=== PATIENT | male | born 1990 | race Caucasian/White ===

== ENCOUNTER 2022-07-03 13:43 | Emergency (ER) | payer OTHER, SELFPAY ==
[2022-07-03 14:02] VITALS: BP 153/84; PULSE 89; RESP 16; TEMP 36.7; O2SAT 100
--- NOTE | 2022-07-03 14:09 | ED.WOUNDLAC ---
HPI - Wound/Laceration General Chief Complaint: Wound/Laceration Stated Complaint: Cut Lt Hand Time Seen by Provider: 07/03/22 14:04 Source: patient Mode of arrival: ambulatory Limitations: no limitations History of Present Illness HPI narrative: Patient presents today complaint of a laceration to the dorsum of his left hand. He was jumping at home and hit his hand on a light fixture home just prior to arrival. Denies numbness or tingling. Denies any pain. He is currently up-to-date in his tetanus vaccine. Related Data Home Medications Medication Instructions Recorded Confirmed No Home Medications 07/03/22 07/03/22 Allergies Allergy/AdvReac Type Severity Reaction Status Date / Time No Known Allergies Allergy Verified 07/03/22 13:50 Review of Systems Review of Systems: CONSTITUTIONAL: Denies body aches, fever, chills, or sweats. EYES: Denies visual changes, redness, or discharge. ENT: Denies rhinorrhea, congestion, sore throat, or otalgia. CARDIOVASCULAR: Denies chest pain, palpitations, or edema. RESPIRATORY: Denies cough or dyspnea. GASTROINTESTINAL: Denies abdominal pain, nausea, vomiting, or diarrhea. GENITOURINARY: Denies dysuria or hematuria. SKIN: Denies rash, itching. + left hand laceration MUSCULOSKELETAL: Denies back pain, joint pain, or myalgia. NEUROLOGIC: Denies headache, numbness, tingling, or weakness. PSYCH: Denies depression or anxiety. PMFSH Comments At time of signature, I have reviewed and agree with nursing past medical, surgical, social and family history unless otherwise noted. Please see nursing chart for further information. There is no relevant family history pertinent to the presenting complaint Exam Narrative: GENERAL: Well-appearing, well-nourished, and in no acute distress. HEAD: Normocephalic, atraumatic. EYES: EOMI. No redness or drainage. Conjunctivae normal. ENT: Mucous membranes pink and moist. NECK: Normal AROM. CHEST: No respiratory distress. EXTREMITIES: Normal range of motion. No edema. SKIN: Warm, dry, no rash. Capillary refill normal. Normal skin turgor. 3cm partial-thickness linear laceration to the dorsum of the hand at the distal 4th and 5th metacarpals. Distal sensation intact capillary refill normal. Full range of motion of the fingers against resistance. NEURO: No focal deficits. Alert and oriented x3. Gait steady. PSYCH: Normal affect. No signs of depression or anxiety. Course Course Level of Care: Express Care Visit Vital Signs Vital signs: Vital Signs Temperature 98.1 F 07/03/22 14:02 Pulse Rate 89 07/03/22 14:02 Respiratory Rate 16 07/03/22 14:02 Blood Pressure 153/84 H 07/03/22 14:02 Pulse Oximetry 100 07/03/22 14:02 Oxygen Delivery Room Air 07/03/22 14:02 Temperature 98.1 F 07/03/22 14:02 Pulse Rate 89 07/03/22 14:02 Respiratory Rate 16 07/03/22 14:02 Blood Pressure 153/84 H 07/03/22 14:02 Pulse Oximetry 100 07/03/22 14:02 Oxygen Delivery Room Air 07/03/22 14:02 Reviewed. Pt has been instructed to follow up with his PCP regarding his elevated blood pressure today. Procedures Laceration Laceration 1: Date: 07/03/22 Time: 14:30 Site: hand Side (If applicable): left Size (cm): 3 Description: linear Depth: simple, single layer Local Anesthetic: lidocaine 1% Amount of anesthesia used (mL): 2 Pre-repair: wound explored and irrigated ====== Skin Level ====== Skin layer closed with: nylon Size (cm): 5-0 Number of sutures: 7 Technique: simple, interrupted ====== Subcutaneous Layer ====== ====== Muscle Layer ====== ====== Tendon Layer ====== Dressing: Dressed with nonadherent dressing. Patient tolerated procedure well MDM - Wound/Laceration Differential Diagnosis Differential diagnosis: Likely laceration, abrasion and avulsion of skin Critical Care Time Critical
[2022-07-03] MEDS: LIDOCAINE HCL 1% LOCAL INJ 2 ML AMPUL 4 ML INFILTRATE (14:38)
== END 2022-07-03 14:45 | disposition home or self-care (01) ==
PROVIDERS: Emergency Provider Nurse Practitioner
DX: S61.412A Laceration without foreign body of left hand, initial encounter (principal); W22.8XXA Striking against or struck by other objects, initial encounter
CPT/HCPCS: 12002; 99212; G0463

== ENCOUNTER 2022-10-15 11:53 | Emergency (ER) | payer BC, SELFPAY ==
--- NOTE | ~2022-10-15 | XR_ITS ---
EXAMINATION: XR chest 2V 10/15/2022 13:16 INDICATION: Right upper quadrant pain PROCEDURE: 2 view chest COMPARISON: 03/22/2010 FINDINGS: The lungs are clear. The cardiomediastinal silhouette is within normal limits. There are no pleural effusions. There is no pneumothorax suspected. IMPRESSION: 1: NO ACUTE CARDIOPULMONARY DISEASE. Reviewed, dictated and finalized at location A.
--- NOTE | ~2022-10-15 | CT_ITS ---
EXAMINATION: CT abdomen pelvis w con DATE: 10/15/2022 13:16 INDICATION: Right upper quadrant pain TECHNIQUE: Computed tomography (CT) of the abdomen and pelvis was performed with 100 cc Omnipaque 350 intravenous contrast. The dose-length product was 652.28 mGy-cm. Automated exposure control and iter ative reconstruction technique were employed. COMPARISON: CT dated 03/22/2020 FINDINGS: Lung bases are unremarkable. Heart size normal. No significant pleural or pericardial effus ion. No significant vascular abnormality. Small fat-containing umbilical hernia. No significant lymph adenopathy. Small hiatal hernia. The liver, spleen, pancreas, adrenal glands and kidneys are unremarkable. Gallbladder is present. Non obstructive bowel gas pattern. Normal appendix. No free air or free fluid.0 there is grade 1 spondylo listhesis at L5-S1 secondary to bilateral spondylolysis. IMPRESSION: 1. No acute abdominal abnormality. Reviewed, dictated and finalized at location A.
[2022-10-15 11:55] VITALS: BP 148/79; PULSE 89; RESP 14; TEMP 36.9; O2SAT 99
[2022-10-15 12:30] LABS: Basophils Percent Auto 0.4 % (0.2-1.2); Eosinophils Absolute Auto 0.1 K/mm3 (0-0.3); Eosinophils Percent Auto 1.4 % (0-4.4); Hematocrit 45.1 % (42.0-52.0); Hemoglobin 15.7 g/dL (14.0-18.0); Immature Granulocyte Absolute 0.01 K/mm3 (0.00-0.031); Immature Granulocyte Percent A 0.2 % (0-0.5); Lymphocytes Absolute Auto 2.06 K/mm3 (0.9-3.2); Lymphocytes Percent Auto 36.2 % (18.3-44.2); Mean Corpuscular HGB Conc 34.8 g/dl (32-36); Mean Corpuscular Hemoglobin 31.3 pg (26-34); Mean Corpuscular Volume 89.8 fl (80-100); Mean Platelet Volume 9.6 fl (7.4-10.4); Monocytes Absolute Auto 0.5 K/mm3 (0.1-0.6); Monocytes Percent Auto 7.9 % (2.6-8.5); Neutrophils Absolute Auto 3.1 K/mm3 (1.3-6.7); Neutrophils Percent Auto 53.9 % (45.5-73.1); Platelet Count Result 354 k/mm3 (150-375); Red Blood Count 5.02 M/mm3 (4.6-6.20); Red Cell Distribution Width 12.7 % (11.5-14.5); White Blood Count 5.7 K/mm3 (4.5-10.0)
[2022-10-15 12:31] LABS: Appearance Urine Clear (Clear); Bilirubin Urine Negative (Negative); Blood Urine Negative (Negative); Color Urine Yellow (Yellow); Glucose Urine UA Negative (Negative); Ketones Urine Negative (Negative); Leukocyte Esterase Ur Negative LEU/UL (Negative); Nitrate Urine Negative (Negative); Protein Urine Negative (Negative); Specific Grav Ur 1.021 (1.001-1.035); Urobilinogen Urine 0.2 mg/dL (<2.0)
[2022-10-15 12:32] LABS: Add Urine Microscopic? NO
[2022-10-15 12:43] LABS: Alanine Aminotransferase 35 U/L (6-50); Alkaline Phosphatase 70 U/L (38-126); Anion Gap 10 mmol/L (8-16); Aspartate Amino Transferase 18 U/L (17-59); Blood Urea Nitrogen 14 mg/dL (9-20); Calcium 9.4 mg/dL (8.4-10.2); Carbon Dioxide 27 mmol/L (22-30); Chloride 105 mmol/L (98-107); Estimated CRCL calculation 127 ml/min; Estimated Glomerular Filt Rate > 60; Glucose 91 mg/dL (65-110); Lipase 63 U/L (23-300); Potassium 4.2 mmol/L (3.4-5.0); Sodium 142 mmol/L (137-145)
--- NOTE | 2022-10-15 12:54 | ED.ABDPAIN ---
HPI - Abdominal Pain General Chief Complaint: Abdominal Pain Stated Complaint: ab pain Time Seen by Provider: 10/15/22 12:11 History of Present Illness HPI narrative: 32 y/o M w/o known medical history reports for constant RUQ abdominal discomfort x1 week. Patient states that he would not call this pain , but states it feels uncomfortable. He does not recognize any patterns with eating or drinking. States the abdominal discomfort has been constant and radiates into his right lower back. Denies history of previous abdominal surgeries, fever, body aches, chills, chest pain, shortness of breath, nausea, vomiting, diarrhea, urinary symptoms. Last bowel movement this morning was normal. Denies melena, hematochezia, heartburn symptoms. Related Data Home Medications Medication Instructions Recorded Confirmed No Home Medications 07/03/22 07/03/22 Allergies Allergy/AdvReac Type Severity Reaction Status Date / Time No Known Allergies Allergy Verified 10/15/22 12:03 Review of Systems Review of Systems: CONSTITUTIONAL: Denies fever, chills EYES: Denies visual changes, redness, or discharge. ENT: Denies rhinorrhea, congestion, sore throat, or otalgia. CARDIOVASCULAR: Denies chest pain, palpitations, or edema. RESPIRATORY: Denies cough or dyspnea. GASTROINTESTINAL: See HPI GENITOURINARY: Denies dysuria or hematuria. SKIN: Denies rash or itching. MUSCULOSKELETAL: Denies joint pain, or myalgia. NEUROLOGIC: Denies headache, numbness, dizziness, or weakness. PSYCHIATRIC: Denies anxiety or depression. Exam Narrative: GENERAL: Well-appearing, well-nourished, and in no acute distress. Pt resting comfortably in bed. He is pleasant and conversational. HEAD: Normocephalic, atraumatic. EYES: PERRLA and EOMI. ENT: Nares clear, no rhinorrhea or epistaxis. Mucous membranes moist. Oropharynx without tonsillar hypertrophy exudate or other lesions. NECK: Supple. No adenopathy or masses. CHEST: Clear to auscultation. No respiratory distress. No wheezes rales or rhonchi. HEART: Regular rate and rhythm. No murmur heard. Normal peripheral pulses. ABDOMEN: Soft, nondistended, normal active bowel sounds. Tenderness to the RUQ with deep palpation. Negative Monzon's. No tenderness to remaining of abdomen. Negative CVA tenderness. BACK: No midline vertebral spine tenderness. TTP to R paraspinous muscles. No overlying skin changes. EXTREMITIES: Normal range of motion. No edema. SKIN: Warm, dry, no rash. NEURO: No focal deficits. Alert and oriented x3. PSYCH: Normal mood and affect. Course Course Emergency Course: 1419: Patient reevaluated. He is sitting in the chair in the exam room, conversing with family member. He does not appear to be in any distress. He is pleasant and conversational. Vital Signs Vital signs: Vital Signs Temperature 98.4 F 10/15/22 11:55 Pulse Rate 89 10/15/22 11:55 Respiratory Rate 14 10/15/22 11:55 Blood Pressure 148/79 H 10/15/22 11:55 Pulse Oximetry 99 10/15/22 11:55 Oxygen Delivery Room Air 10/15/22 11:55 Temperature 98.4 F 10/15/22 11:55 Pulse Rate 76 10/15/22 14:29 Respiratory Rate 16 10/15/22 14:29 Blood Pressure 133/82 10/15/22 14:29 Pulse Oximetry 100 10/15/22 14:29 Oxygen Delivery Room Air 10/15/22 11:55 MDM - Abdominal Pain MDM Narrative Medical decision making narrative: 32 y/o M w/o known medical history reports for RUQ persistent abdominal pain x1 week. There is no pattern with eating/drinking. Exam reveals tenderness to RUQ, negative Monzon's sign. CBC w/o leukocytosis. CMP w/o abnormal findings. Liver function normal. Lipase not elevated. UA normal. CT A/P w/o acute intraabdominal findings. CXR w/o acute cardiopulmonary process. CT abdomen pelvis reveals no acute abdominal abnormality, small hiatal hernia. Patient received Pepcid and GI cocktail without improvement in pain. I offered pain medications 2 times, however patient declined. Discussed lab a
[2022-10-15] MEDS: SODIUM CHLORIDE 0.9% IV 1,000 ML 999 ML IV CONT (13:37)
[2022-10-15] MEDS: BELLADONNA ALK/PHENOB ELIX 10 ML, MAG HYDROX/ALUMINUM HYD/SIMETH 30 ML, LIDOCAINE HCL 2... PO (13:38)
[2022-10-15] MEDS: FAMOTIDINE 20 MG/2 ML VIAL IV PUSH (13:38)
[2022-10-15 13:52] LABS: Lactic Acid Reflex 1.1 mmol/L (0.7-2.0)
[2022-10-15 14:29] VITALS: BP 133/82; PULSE 76; RESP 16; O2SAT 100
== END 2022-10-15 14:30 | disposition home or self-care (01) ==
PROVIDERS: Emergency Medicine; Emergency Provider Physician Assistant
DX: K44.9 Diaphragmatic hernia without obstruction or gangrene (principal); R10.11 Right upper quadrant pain
CPT/HCPCS: 36415; 71046; 74177; 80053; 81003; 83605; 83690; 85025; 96361; 96374; 99284; A9270; J7030; Q9967

== ENCOUNTER 2024-10-10 03:30 | Emergency (ER) | payer BC, SELFPAY ==
--- NOTE | ~2024-10-10 | CT_ITS ---
Non-contrast CT scan of the Abdomen and Pelvis Clinical indication: Flank pain Technique: 2.5 mm axial scans were obtained through the abdomen and pelvis without intravenous or or al contrast. Dose reduction technique was used on this scan by utilizing automated exposure control a nd iterative reconstruction technique. The dose-length product (DLP) was 754.81 mGy-cm. COMPARISON: 10/15/2022 Findings: Images through the lung bases reveal no abnormalities. There is a 3 mm stone which may be the right UVJ versus just within the urinary bladder. There is min imal right hydroureteronephrosis. No left renal or left ureteral stone. No left hydronephrosis. The liver, spleen, pancreas, gallbladder, and adrenals appear normal. There is no aortic aneurysm. There is no evidence of bowel obstruction. Images through the pelvis were performed. There is no evidence of ascites or lymphadenopathy. Urinary bladder otherwise unremarkable. Prostate gland is unremarkable. No pelvic mass seen. Bilateral L5 pa rs interarticularis defects are present with minimal grade 1 anterolisthesis of L5 over S1. Impression: 3 mm stone probably at the right UVJ versus just within the urinary bladder, with associated minimal right hydroureteronephrosis. Reviewed, dictated and finalized at location . Impression: 3 mm stone probably at the right UVJ versus just within the urinary bladder, wi th associated minimal right hydroureteronephrosis.
[2024-10-10 03:34] VITALS: BP 133/86; PULSE 88; RESP 18; TEMP 36.6; O2SAT 99
[2024-10-10 03:48] LABS: Basophils Absolute Auto 0.1 K/mm3 (0.0-0.1); Basophils Percent Auto 0.6 % (0.2-1.2); Eosinophils Absolute Auto 0.2 K/mm3 (0-0.3); Eosinophils Percent Auto 1.9 % (0-4.4); Hematocrit 42.3 % (42.0-52.0); Hemoglobin 14.7 g/dL (14.0-18.0); Immature Granulocyte Absolute 0.02 K/mm3 (0.00-0.031); Immature Granulocyte Percent A 0.2 % (0-0.5); Lymphocytes Absolute Auto 3.31 K/mm3 (0.9-3.2); Lymphocytes Percent Auto 34.1 % (18.3-44.2); Mean Corpuscular HGB Conc 34.8 g/dl (32-36); Mean Corpuscular Hemoglobin 31.5 pg (26-34); Mean Corpuscular Volume 90.6 fl (80-100); Mean Platelet Volume 9.5 fl (7.4-10.4); Monocytes Percent Auto 10.1 % (2.6-8.5); Neutrophils Absolute Auto 5.2 K/mm3 (1.3-6.7); Neutrophils Percent Auto 53.1 % (45.5-73.1); Platelet Count Result 305 k/mm3 (150-375); Red Blood Count 4.67 M/mm3 (4.6-6.20); Red Cell Distribution Width 12.8 % (11.5-14.5); White Blood Count 9.7 K/mm3 (4.5-10.0)
[2024-10-10 03:59] LABS: Alanine Aminotransferase 51 U/L (6-50); Albumin Level 4.7 g/dL (3.5-5.1); Alkaline Phosphatase 58 U/L (38-126); Anion Gap 12 mmol/L (4-12); Aspartate Amino Transferase 20 U/L (17-59); Bilirubin,Total 0.8 mg/dL (0.2-1.3); Blood Urea Nitrogen 15 mg/dL (9-20); Calcium 9.5 mg/dL (8.4-10.2); Carbon Dioxide 26 mmol/L (22-30); Chloride 102 mmol/L (98-107); Estimated CRCL calculation 104 ml/min; Estimated Glomerular Filt Rate > 60; Glucose 118 mg/dL (65-110); Lipase 83 U/L (23-300); Potassium 3.8 mmol/L (3.4-5.0); Sodium 140 mmol/L (137-145)
[2024-10-10 04:00] LABS: Magnesium 1.9 mg/dL (1.6-2.3)
[2024-10-10 04:10] LABS: Add Urine Microscopic? YES; Appearance Urine Clear (Clear); Bilirubin Urine Negative (Negative); Blood Urine 1+ (Negative); Color Urine Yellow (Yellow); Glucose Urine UA Negative (Negative); Ketones Urine Trace mg/dL (Negative); Leukocyte Esterase Ur Negative LEU/UL (Negative); Nitrate Urine Negative (Negative); Protein Urine 1+ mg/dL (Negative); Specific Grav Ur 1.027 (1.001-1.035); Urobilinogen Urine 0.2 mg/dL (<2.0); pH Urine 5.5 (5.0-9.0)
[2024-10-10 04:12] LABS: Squamous Epithelial Cell Urine Rare /hpf (Few); WBC Urine 0-5 /hpf (0-3)
[2024-10-10 04:13] LABS: Bacteria Urine Trace /hpf
[2024-10-10] MEDS: SODIUM CHLORIDE 0.9% IV 1,000 ML 999 ML IV CONT (04:36)
[2024-10-10] MEDS: KETOROLAC 15 MG/ML VIAL (*BKC) IV PUSH (04:36)
--- NOTE | 2024-10-10 04:55 | ED_ITS ---
HPI - Abdominal Pain General Chief Complaint: Abdominal Pain Stated Complaint: back pain to right abd pain Time Seen by Provider: 10/10/24 03:36 History of Present Illness HPI narrative: Patient is a 34-year-old male who presents to the emergency department this evening complaining of a right sided flank pain radiating to his right lower quadrant. Patient states that the pain started around 0230 this morning. Admits that the pain is intermittent, rating at a 4-5/10 on the pain scale. Patient states that he did vomit twice secondary to the pain. Denies any history of kidney stones. Denies any dysuria or hematuria but states that he has been having the urge to pee but nothing comes out. Patient took ibuprofen at home around 0300 with some improvement of his symptoms. Denies any fevers or chills, and denies any additional symptoms or concerns at this time. Related Data Home Medications ?Medication ?Instructions ?Recorded ?Confirmed ?Last Taken ?Type No Home Medications 07/03/22 07/03/22 Unknown History Allergies Allergy/AdvReac Type Severity Reaction Status Date / Time No Known Allergies Allergy Verified 10/15/22 12:03 Review of Systems 2 Review of Systems: All systems are reviewed and are negative unless stated otherwise in the HPI. Exam 2 Narrative: General: Alert, awake, afebrile, in no acute distress, pleasant. HEENT: PERRL, no rhinorrhea, no post nasal drip, oropharynx clear. Neck: Trachea midline, no JVD, no lymphadenopathy. Cardiovascular: Regular rate and rhythm, no murmurs, rubs or gallops, no peripheral edema. Respiratory: Clear to auscultation bilaterally, no tachypnea, no wheezing, no rhonchi, no rubs, no respiratory distress. Abdomen: Soft, nontender, nondistended, no rebound, no guarding, no peritoneal signs. Musculoskeletal: No joint swelling or deformity, normal muscle tone. Skin: No rashes or petechia, no signs of infection. Psychiatric: Alert and oriented, normal behavior and judgment for situation. Neurological: Alert and oriented to person, place, and time. Follows all commands. No focal deficits, speech is clear and fluent. Course Vital Signs Vital signs: Vital Signs Temperature 98 F 10/10/24 03:34 Pulse Rate 88 10/10/24 03:34 Respiratory Rate 18 10/10/24 03:34 Blood Pressure 133/86 10/10/24 03:34 Pulse Oximetry 99 10/10/24 03:34 Oxygen Delivery Room Air 10/10/24 03:34 Temperature 98 F 10/10/24 03:34 Pulse Rate 79 10/10/24 05:49 Respiratory Rate 18 10/10/24 05:49 Blood Pressure 139/71 10/10/24 05:49 Pulse Oximetry 98 10/10/24 05:49 Oxygen Delivery Room Air 10/10/24 03:34 MDM - Abdominal Pain MDM Narrative Medical decision making narrative: The patient was evaluated by myself in the emergency department. History is obtained from patient who is an independent historian and physical exam was performed. External medical records were reviewed at this time. IV was established and pertinent tests were ordered. Patient was administered 1 L IV fluid bolus with normal saline 15 mg of IV Toradol. Laboratory results obtained revealing no acute process. Urinalysis revealed 1+ blood and 6-10 rbc's otherwise unremarkable. Imaging studies obtained included CT abdomen and pelvis without IV contrast which was independently interpreted by me revealing a 3-4 mm kidney stone at the right UVJ with right-sided hydroureteronephrosis, otherwise unremarkable. Differential diagnosis considerations include kidney stone/renal colic, appendicitis, cholecystitis, musculoskeletal strain, inguinal hernia. Comorbidities impacting this visit include none. I have evaluated and discussed social determinants of health with the patient that could potentially impact subsequent diagnosis and treatment plans. On repeat assessment of the patient, reevaluation revealed that the patient is doing well and is in no acute distress. Patient symptoms have improved since he arrived to our emergency department. Repeat vital signs were all reviewed and noted to be stable. Differential diagnosis and treatment plan were discussed with the patient at bedside. Patient agrees with discussion and after shared medical decision making agrees with discharge. All questions were answered to the patient's satisfaction. Patient will follow up with urology in 3-5 days. Script for [place], ibuprofen, Flomax and [place] were sent to patient's pharmacy to use as prescribed to help passed his kidney stone. Patient was provided with strict return precautions and instructed to return to the emergency department if any new or worsening symptoms develop. The patient was discharged in stable condition. Lab Data 10/10/24 03:42 10/10/24 03:42 Labs: Lab Results 03/13/25 03/13/25 Range/Units 03:42 03:44 WBC 9.7 (4.5-10.0) K/mm3 RBC 4.67 (4.6-6.20) M/mm3 Hgb 14.7 (14.0-18.0) g/dL Hct 42.3 (42.0-52.0) % MCV 90.6 (80-100) fl MCH 31.5 (26-34) pg MCHC 34.8 (32-36) g/dl RDW 12.8 (11.5-14.5) % Plt Count 305 (150-375) k/mm3 MPV 9.5 (7.4-10.4) fl Immature Gran % (Auto) 0.2 (0-0.5) % Neut % (Auto) 53.1 (45.5-73.1) % Lymph % (Auto) 34.1 (18.3-44.2) % [place] % (Auto) 10.1 H (2.6-8.5) % Eos % (Auto) 1.9 (0-4.4) % Baso % (Auto) 0.6 (0.2-1.2) % Lymph # (Auto) 3.31 H (0.9-3.2) K/mm3 [place] # (Auto) 1.0 H (0.1-0.6) K/mm3 Eos # (Auto) 0.2 (0-0.3) K/mm3 Baso # (Auto) 0.1 (0.0-0.1) K/mm3 Abs Immat Gran (auto) 0.02 (0.00-0.031) K/mm3 Absolute Neuts (auto) 5.2 (1.3-6.7) K/mm3 Absolute Nucleated RBC 0.000 (0.0-0.012) K/mm3 Nucleated RBC % 0.0 (0.0-0.2) % Sodium 140 (137-145) mmol/L Potassium 3.8 (3.4-5.0) mmol/L Chloride 102 (98-107) mmol/L Carbon Dioxide 26 (22-30) mmol/L Anion Gap 12 (4-12) mmol/L BUN 15 (9-20) mg/dL Creatinine 1.13 (0.7-1.3) mg/dL Estim Creat Clear Calc 104 ml/min Estimated GFR > 60 (59 - ) Glucose 118 H (65-110) mg/dL Calcium 9.5 (8.4-10.2) mg/dL Magnesium 1.9 (1.6-2.3) mg/dL Total Bilirubin 0.8 (0.2-1.3) mg/dL AST 20 (17-59) U/L ALT 51 H (6-50) U/L Alkaline Phosphatase 58 (38-126) U/L Total Protein 8.0 (6.3-8.2) g/dL Albumin 4.7 (3.5-5.1) g/dL Lipase 83 (23-300) U/L Urine Color Yellow (Yellow) Urine Appearance Clear (Clear) Urine pH 5.5 (5.0-9.0) Ur Specific [place] 1.027 (1.001-1.035) Urine Protein 1+ H (Negative) mg/dL Urine Glucose (UA) Negative (Negative) mg/dL Urine Ketones Trace H (Negative) mg/dL Ur Blood (Man) 1+ H (Negative) Urine Nitrate Negative (Negative) Urine Bilirubin Negative (Negative) Urine Urobilinogen 0.2 (<2.0) mg/dL Leukocyte Esterase Rfl Negative (Negative) JUDITH/UL Urine RBC 6-10 H (0-2) /hpf Urine WBC 0-5 (0-3) /hpf Ur Squamous Epith Cells Rare (Few) /hpf Urine Bacteria Trace /hpf Urine Casts ---- Discharge Plan Discharge Clinical Impression: Acute right flank pain, Kidney stone on right side Patient Disposition: Home, Self-Care Condition: Improved Instructions: Antibiotic Form, Kidney Stones (ED), How to Strain Your Urine (ED) Additional Instructions: Please follow-up with urologist your provided with today within the next 3-5 days. Use the prescribed medications as instructed to help passed 2 kidney stones. Return to the emergency department if any new or worsening symptoms develop, specifically, if the medications he was prescribed are not alleviating her pain and if you are unable to keep down any fluids. Patient Language: Bahraini Prescriptions: New hydrocodone-acetaminophen 5-325 mg tablet 1 tablet PO Q8H PRN (Reason: pain) Qty: 14 0RF ondansetron 4 mg tablet,disintegrating 4 mg PO Q8H PRN (Reason: nausea and vomiting) Qty: 14 0RF tamsulosin [Flomax] 0.4 mg capsule 0.4 mg PO DAILY Qty: 14 0RF ibuprofen 400 mg tablet 400 mg PO Q6H PRN (Reason: pain) Qty: 20 0RF No Action No Home Medications Follow-up/Referrals: PHYSICIAN,DRI[facility] SH[facility]ENER [Primary Care Provider] - Noe Parker MD [Physician] - 3 Days Stand Alone Forms: Work/School Release IP Time of Disposition: 06:18
[2024-10-10 05:49] VITALS: BP 139/71; PULSE 79; RESP 18; O2SAT 98
[2024-10-10 06:27] VITALS: BP 136/76; PULSE 79; RESP 18; O2SAT 98
== END 2024-10-10 06:28 | disposition home or self-care (01) ==
PROVIDERS: Emergency Provider Emergency Medicine
DX: N20.0 Calculus of kidney (principal)
CPT/HCPCS: 36415; 74176; 80053; 81001; 83690; 83735; 85025; 96361; 96374; 99284; J1885; J7030